=== PATIENT | female | born 1960 | race Caucasian/White ===

== ENCOUNTER 2019-05-11 16:32 | Outpatient (CLI) | payer BC ==
--- NOTE | 2019-05-14 07:49 | MMO ---
Bilateral MAMMO Bilat Screen [facility]. CLINICAL HISTORY: Patient is 58 years old and is seen for screening. The patient has the following family history of breast cancer: maternal aunt, at age 36, BRAIN. The patient has no personal history of cancer. VIEWS: The views performed were: bilateral craniocaudal with tomosynthesis and bilateral mediolateral oblique with tomosynthesis. FILMS COMPARED: The present examination has been compared to prior imaging studies performed at [facility] on 01/24/2015, 02/03/2016, 02/06/2016 and 05/03/2017. MAMMOGRAM FINDINGS: There are scattered fibroglandular densities. There are benign appearing calcifications seen in both breasts. There are no suspicious masses, suspicious calcifications, or new areas of architectural distortion. IMPRESSION: THERE IS NO MAMMOGRAPHIC EVIDENCE OF MALIGNANCY. A ROUTINE FOLLOW-UP MAMMOGRAM IN 1 YEAR IS RECOMMENDED. THE RESULTS OF THIS EXAM WERE SENT TO THE PATIENT. ACR BI-RADS Category 2 - Benign finding MAMMOGRAPHY NOTE: 1. A negative mammogram report should not delay a biopsy if a dominant of clinically suspicious mass is present. 2. Approximately 10% to 15% of breast cancers are not detected by mammography. 3. Adenosis and dense breasts may obscure an underlying neoplasm. Reported by: AVELINO MOSS MD Electonically Signed: [id number]
== END 2019-05-11 16:33 | disposition home or self-care (01) ==
LOC: BICMAMMO 16:32
PROVIDERS: ATTEND Obstetrics & Gynecology
DX: Z12.31 Encounter for screening mammogram for malignant neoplasm of breast (principal); Z80.3 Family history of malignant neoplasm of breast
CPT/HCPCS: 77063; 77067

== ENCOUNTER 2020-09-11 06:37 | Outpatient (CLI) | payer OTHER ==
[2020-09-11 19:02] LABS: SARS-CoV-2 MS2 Positive; SARS-CoV-2 N Gene Negative; SARS-CoV-2 S Gene Negative; SARS-CoV-2 by NAA Not Detected (NotDetected); SARS-CoV-2 orf1ab Negative
== END 2020-09-11 06:38 | disposition home or self-care (01) ==
LOC: LABBT 06:37
PROVIDERS: ATTEND Ophthalmology Retina Specialist
DX: H43.822 Vitreomacular adhesion, left eye (principal); Z20.828 Contact with and (suspected) exposure to other viral communicable diseases
CPT/HCPCS: 87635; U0003

== ENCOUNTER 2020-09-16 07:14 | Day surgery (SDC) | payer OTHER ==
[2020-09-15 15:52] VITALS: BMI 29.2
[~2020-09-16 07:14] MED LIST: EPINEPHrine 0.3 MG in Ophthalmic Irrigation Solution 500 ML IRR SCH
[2020-09-16] MEDS ORDERED: Phenylephrine 2.5% Ophth Soln 5 ML BOT ONE (07:21)
[2020-09-16] MEDS ORDERED: Cyclopentolate 1% Opth Drop 2 ML BOT ONE (07:21)
[2020-09-16] MEDS ORDERED: Fentanyl 100 MCG/2 ML VIAL ONE (08:07)
[2020-09-16] MEDS ORDERED: PROPOFOL 20 ML ONE (08:07)
[2020-09-16] MEDS ORDERED: Midazolam HCl 2 mg/2 ml Vial ONE (08:07)
--- NOTE | 2020-09-16 09:37 | OP ---
DATE OF PROCEDURE: 09/16/2020 PRINCIPAL PREOPERATIVE DIAGNOSIS: Vitreomacular traction, left eye. POSTOPERATIVE DIAGNOSIS: Vitreomacular traction, left eye. PROCEDURES PERFORMED: 1. 25-gauge pars plana vitrectomy, left eye. 2. Membrane peel, left eye. ESTIMATED BLOOD LOSS: None. SPECIMENS REMOVED: None. COMPLICATIONS: None. ANESTHESIA: MAC with sub-Tenon's block. SUMMARY OF OPERATION: The patient was identified in the preoperative holding area, where the correct eye being the left eye was marked for surgery. The patient was taken to the operating room, where MAC anesthesia was induced. The left eye was prepped and draped in the usual sterile ophthalmic fashion for surgery. A wire-clip lid speculum was placed. An inferonasal conjunctival peritomy was made with the Lisa scissors for administration of sub-Tenon's block. The block consisted of 1:1 ratio of 4% lidocaine and 0.75% Marcaine. A total of 5 mL was administered. A standard 25-gauge pars plana vitrectomy platform was fashioned with trocars placed approximately 4 mm from the limbus. The infusion was noted to be within the vitreous cavity prior to being turned on to infusion pressure of 30 mmHg. The light pipe Micro vitrector was introduced in the eye under visualization of the BIOM viewing system. A careful core vitrectomy was performed followed by injection of Kenalog. A gentle posterior vitreous detachment was subsequently created. This was followed by completion of peripheral shave vitrectomy. During the course of the posterior vitreous detachment creation, the membrane was gently peeled over the surface of the macula relieving all traction off the fovea. Following this, the macula was noted to relax sufficiently. Following vitrectomy, a 360-degree scleral depressed exam of the periphery was performed, which revealed no defects. The cannulas were sequentially removed, and all sclerotomies were noted to be watertight. Subconjunctival Ancef and Kenalog were injected. The wire-clip lid speculum was removed followed by application of TobraDex ophthalmic ointment and a light patch and shield. The patient tolerated the procedure well and was taken to the outpatient recovery area in good condition. Job ID: [id number]
[2020-09-16] MEDS ORDERED: Bupivacaine PF 0.75% SDV 10 ML ONE (10:48)
[2020-09-16] MEDS ORDERED: Lidocaine 4% PF 5 ML AMP ONE (10:48)
[2020-09-16] MEDS ORDERED: Maxitrol 0.1% Opth Oint 3.5 GM TUBE ONE (10:48)
[2020-09-16] MEDS ORDERED: Triamcinolone 40 MG/ML VIAL ONE (10:48)
[2020-09-16] MEDS ORDERED: Lidocaine 1% PF 5 ML VIAL ONE (10:48)
[2020-09-16] MEDS ORDERED: CEFAZOLIN 1 GM VIAL ONE (10:48)
== END 2020-09-16 09:50 | disposition home or self-care (01) ==
LOC: SDC 07:14
PROVIDERS: ATTEND Ophthalmology Retina Specialist
PROC: 08T53ZZ Resection of Left Vitreous, Percutaneous Approach (ICD-10-PCS; principal; 2020-09-16)
PROC: 08NF3ZZ Release Left Retina, Percutaneous Approach (ICD-10-PCS; principal; 2020-09-16)
DX: H43.822 Vitreomacular adhesion, left eye (principal); Z79.899 Other long term (current) drug therapy
CPT/HCPCS: J0171; J0690; J2001; J2250; J2704; J3010; J3301; J3490

== ENCOUNTER 2023-05-24 12:49 | Outpatient (CLI) | payer OTHER | END 2023-05-24 12:50 | disposition home or self-care (01) | LOC: BICMAMMO 12:49 | PROVIDERS: ATTEND Nurse Practitioner Family | DX: Z12.31 Encounter for screening mammogram for malignant neoplasm of breast (principal); Z80.3 Family history of malignant neoplasm of breast | CPT/HCPCS: 77063; 77067 ==